=== PATIENT | male | born 1985 | race Caucasian/White ===

== ENCOUNTER 2017-07-28 20:04 | Emergency (ER) | payer MEDICAID ==
[~2017-07-28] VITALS: Ht 188 cm; Wt 77.1 kg
[2017-07-28] MEDS ORDERED: NKM (20:37)
[2017-07-28] MEDS ORDERED: NYSTATIN-TRIAMC15 G2 TP (20:52)
[2017-07-28 21:19] VITALS: BP 110/71
--- NOTE | 2017-07-29 15:15 | Emergency Room Report ---
History of Present Illness General Chief Complaint: Skin Rash/Abscess Source: Patient Present Illness HPI Patient presents with complaints of rash on the head of the penis He noticed the area about 7 days ago [place] that had improved however again presented Patient felt that after washing in my the bathrooms while traveling he obtain the rash Denies any sexual contact Denies any dysuria frequency Initially he felt that there was some puritic component denies any at this time Denies any testicular pain denies any inguinal pain Denies any fevers or chills Allergies: Coded Allergies: No Known Allergies (Unverified , 07/28/17) Patient History Past Medical History: see triage record Pertinent Family History: none Reviewed Nursing Documentation: PMH: Agreed; PSxH: Agreed Nursing Documentation-PMH Past Medical History: No Stated History Review of Systems All Other Systems: negative except mentioned in HPI Physical Exam Vital Signs Date Time Temp Pulse Resp B/P (MAP) Pulse Ox O2 Delivery O2 Flow Rate FiO2 07/28/17 20:36 98.3 74 16 110/71 96 Room Air 98.2 Sp02 EP Interpretation: reviewed, normal General Appearance: well appearing, no apparent distress Head: normocephalic, atraumatic Eyes: bilateral eye PERRL, bilateral eye EOMI ENT: normal pharynx Neck: supple Respiratory: lungs clear Cardiovascular #1: regular rate, rhythm Gastrointestinal: non tender, soft Genitourinary: other - Uncircumcised, fine erythematous hue rash involving the head of the penis, no obvious ulceration, nontender to touch, no blister formation Musculoskeletal: back normal Neurologic: alert, oriented x3 Skin: other - As well Lymphatic: no adenopathy Medical Decision Making Diagnostic Impression: Primary Impression: Rash and other nonspecific skin eruption Additional Impression: heat rash ER Course Given the exam and presentation patient again adamantly denying any discharge or discomfort denies any recent sexual contact Appears the patient has possible heat rash/nonspecific dermatitis He will be placed on symptomatic medication and will have close outpatient follow-up Last Vital Signs Date Time Temp Pulse Resp B/P (MAP) Pulse Ox O2 Delivery O2 Flow Rate FiO2 07/28/17 21:19 98.2 16 110/71 96 Room Air 98.2 07/28/17 20:36 74 Status: unchanged Disposition: HOME, SELF-CARE Condition: Stable Scripts Nystatin/Triamcin (NYSTATIN-TRIAMCINOLONE CREAM) 15 Gm Cream..g. 15 GM TP TID for 7 Days, GM Prov: Ladonna Ann DO 07/28/17 Referrals: [facility],REFERRING (PCP) Patient Instructions: Rash Additional Instructions: Patient is provided with the discharge instructions notified to follow up with primary doctor in the next 2-3 days otherwise return to the er with any worsening symptoms. Please note that this report is being documented using DRAGON technology. This can lead to erroneous entry secondary to incorrect interpretation by the dictating instrument. Ladonna Ann DO Jul 29, 2017 15:15
== END 2017-07-28 23:37 | disposition home or self-care (01) ==
LOC: EMR 20:57
DX: L74.0 Miliaria rubra (principal)
CPT/HCPCS: 99283